=== PATIENT | female | born 1980 | race Caucasian/White ===

== ENCOUNTER → 2017-06-30 09:16 | Outpatient (CLI) | payer BC, SELFPAY ==
[2017-06-30 12:36] LABS: T3 Total - Triiodothyronine 0.82 ng/mL (0.6-1.81)
[2017-06-30 12:53] LABS: T4 Free Direct 0.91 ng/dL (0.76-1.46); Thyroid Stim Hormone (TSH) 0.07 uIU/mL (0.358-3.74)
== END ==
PROVIDERS: Family Provider Family Medicine; PCP Family Medicine; Visit Provider Family Medicine
DX: E03.9 Hypothyroidism, unspecified (principal)
CPT/HCPCS: 36415; 84439; 84443; 84480

== ENCOUNTER → 2018-06-22 10:18 | Outpatient (CLI) | payer BC, SELFPAY ==
[2018-06-22 13:44] LABS: Free T3 2.2 pg/mL (2.18-3.98); T4 Free Direct 1.11 ng/dL (0.76-1.46); Thyroid Stim Hormone (TSH) 1.31 uIU/mL (0.358-3.74)
== END ==
PROVIDERS: Family Provider Family Medicine; PCP Family Medicine; Visit Provider Family Medicine
DX: E03.9 Hypothyroidism, unspecified (principal); Z85.850 Personal history of malignant neoplasm of thyroid
CPT/HCPCS: 36415; 84439; 84443; 84481

== ENCOUNTER → 2018-09-15 11:07 | Outpatient (CLI) | payer BC, SELFPAY ==
[2018-09-15 12:43] LABS: Free T3 2.7 pg/mL (2.18-3.98); T4 Free Direct 0.92 ng/dL (0.76-1.46); Thyroid Stim Hormone (TSH) 0.11 uIU/mL (0.358-3.74)
== END ==
PROVIDERS: Family Provider Family Medicine; PCP Family Medicine; Visit Provider Family Medicine
DX: E03.9 Hypothyroidism, unspecified (principal); Z85.850 Personal history of malignant neoplasm of thyroid
CPT/HCPCS: 36415; 84439; 84443; 84481

== ENCOUNTER → 2019-03-15 14:25 | Outpatient (CLI) | payer BC, SELFPAY ==
[2019-03-15 16:26] LABS: T4 Free Direct 1.23 ng/dL (0.76-1.46); Thyroid Stim Hormone (TSH) 0.77 uIU/mL (0.358-3.74)
== END ==
PROVIDERS: Family Provider Family Medicine; PCP Family Medicine; Visit Provider Family Medicine
DX: E03.9 Hypothyroidism, unspecified (principal)
CPT/HCPCS: 36415; 84439; 84443; 84481

== ENCOUNTER → 2020-05-03 14:33 | Outpatient (CLI) | payer BC, SELFPAY ==
[2020-05-03 18:11] LABS: Free T3 2.7 pg/mL (2.18-3.98); T4 Free Direct 1.05 ng/dL (0.76-1.46); Thyroid Stim Hormone (TSH) 0.11 uIU/mL (0.358-3.74)
== END ==
PROVIDERS: PCP Family Medicine; Visit Provider Family Medicine
DX: E03.9 Hypothyroidism, unspecified (principal)
CPT/HCPCS: 36415; 84439; 84443; 84481

== ENCOUNTER 2020-07-04 09:35 | Day surgery (SDC) | payer BC, SELFPAY ==
--- NOTE | 2020-06-28 10:28 | EKG12_ITS ---
Test Reason : PREOP Blood Pressure : / mmHG Vent. Rate : 060 BPM Atrial Rate : 060 BPM P-R Int : 134 ms QRS Dur : 082 ms QT Int : 392 ms P-R-T Axes : 075 086 063 degrees QTc Int : 392 ms Normal sinus rhythm Normal ECG Confirmed by LOUIE BLACKMON, PAULINA ([id number]), editorial assistant JAMIE LOPEZ ([id number] on 07/03/2020 8:00:31 AM Referred By: Jackie Ray Confirmed By:PAULINA PALMA MD
--- NOTE | 2020-06-28 10:45 | RAD_ITS ---
INDICATION: preop history of radiation tx EXAMINATION/TECHNIQUE: X-RAY - XR Chest 2 Views COMPARISON: None. FINDINGS: The lungs are clear. The cardiomediastinal silhouette is unremarkable. No pleural effusion or pneumothorax. No acute osseous abnormalities. RAD/Chest PA and Lateral IMPRESSION: No acute radiographic abnormalities. Electronically Signed: Royer Patino MD at 18:42 EDT Tel , Service support ,
[2020-06-28 12:36] LABS: Hematocrit 44.3 % (37-47); Hemoglobin 14.3 g/dL (12.0-15.0); Mean Corp Hgb Conc 32.3 g/dL (32-36); Mean Corpuscular Hgb 30.5 pg (27.0-32.0); Mean Corpuscular Volume 94.5 fL (81-99); Mean Platelet Vol. 9.1 fl (6.2-12.0); Platelet Count 263 K/mm3 (150-450); RBC Distribution Width CV 11.9 % (11.6-14.6); RBC Distribution Width SD 41.2 fl (35.1-43.9); Red Blood Count 4.69 M/mm3 (4.2-5.4); White Blood Count 5.3 K/mm3 (4.4-11.0)
[2020-06-28 12:57] LABS: International Normalized Ratio 1.1; Prothrombin Time (Protime)PT. 13.4 SECONDS (11.7-14.9)
[2020-06-28 12:58] LABS: Partial Thromboplast Time 31.7 Seconds (24.1-36.2)
[2020-06-28 13:04] LABS: AST(SGOT) 16 U/L (15-37); Alanine Aminotransfer ALT/SGPT 23 U/L (13-56); Albumin, Serum 3.9 g/dL (3.2-5.0); Alkaline Phosphatase 85 U/L (45-117); Bilirubin, Direct 0.14 mg/dL (0.00-0.30); Globulin 3.4 g/dL (2.2-4.2); Protein, Total 7.3 g/dL (6.4-8.2); Thyroid Stim Hormone (TSH) 1.06 uIU/mL (0.358-3.74)
--- NOTE | 2020-07-02 11:02 | HP.PCM_ITS ---
History and Physical Date of Admission: 07/04/20 HPI: The patient is a 40 year old female presenting for pre-operative visit. She is scheduled for?laparoscopic bilateral salpingectomy and hysteroscopy with bilateral salpingectomy and mirena insertion, for?menorrhagia, dysmenorrhea, adenomyosis on?07/04/20. ??Procedure discussed along with risks, benefits and complications. ?Other alternatives discussed for management. Consent form signed??Yes.? PAST MEDICAL HISTORY PAST MEDICAL HISTORY Diagnosis Date ? Allergic rhinitis, cause unspecified ? ? Malignant neoplasm of thyroid gland (HCC) ? ? ? PAST SURGICAL HISTORY PAST SURGICAL HISTORY Procedure Laterality Date ? THYROIDECTOMY ? 04/08/2005 ? TOTAL THYROID ? TMJ ? 2002 ? UNSPECIFIED ORAL SURGERY PROCEDURE, BY REPORT ? ? ? WISDOM TEETH EXTRACTION ? ? CURRENT MEDICATIONS Current Outpatient Medications Medication Sig Dispense Refill ? azithromycin (ZITHROMAX) 250 mg tablet Take two pills the first day and then one pill daily x 4 days (Patient not taking: Reported on 06/14/2020 ) 6 tablet 0 ? levothyroxine (SYNTHROID) 125 mcg tablet Take 1 tablet by mouth as directed. 1 tablet M-F Sat and Sun take 1.5 tablets. 32 tablet 11 ? COMPOUNDED PRESCRIPTION Lenova - OCP ? ? ? epinephrine(EPIPEN 0.3 MG/0.3 ML (1:1,000) IM INJECTOR) use as directed for allergic reaction. ?Seek emergent medical care immediately after use. two-pack with show dog trainer 1 ? No current facility-administered medications for this visit. ? ALLERGIES:?Influenza Virus Vaccine Tri-Split 9829-0826, Iodine, Sulfa (Sulfonamide Antibiotics), Avocado, Bee Sting, Eggs [Egg], Environmental [Other], Nut - Unspecified, and Shellfish ? PERSONAL HISTORY:? SOCIAL HISTORY Social History ? Tobacco Use ? Smoking status: Former Smoker ? ? Years: 1.00 ? ? Quit date: 03/29/1998 ? ? Years since quittin.2 ? Smokeless tobacco: Never Used Vaping Use ? Vaping Use: Never used Substance Use Topics ? Alcohol use: Yes ? ? Alcohol/week: 1.7 standard drinks ? ? Comment: Occasionally,NOT WHILE ? Drug use: No ? FAMILY HISTORY:? FAMILY HISTORY FAMILY HISTORY Problem Relation Age of Onset ? Breast Cancer Mother ? ? other (osteopenia) Mother ? ? Prostate Cancer Father ? ? Diabetes Father ? ? Diabetes Maternal Grandmother ? ? Stroke Maternal Grandmother ? ? Cancer Maternal Grandmother ?Metastatic with unknown primary site. ? Colon Cancer Paternal Grandmother ? ? Heart Paternal Grandmother ? ? Prostate Cancer Paternal Grandfather ? ? Heart Paternal Grandfather ? ? other (PARKINSONS DISEASE) Paternal Grandfather ? ? other (thyroid cancer) Sister ? ? Cancer Maternal Uncle ?LUNG CANCER ? REVIEW OF SYMPTOMS: GENERAL: denies fevers or chills ENDOCRINOLOGY: has not been on steroids Cardiology : denies palpitations or chest pain Respiratory: denies SOB or cough Hematology: denies history of prolonged bleeding or easy bruising or VTE Allergy: Denies history of personal or family history of allergy to anesthesia ? ? PHYSICAL EXAMINATION: ? VITALS:?Last menstrual period 06/02/2020. ? GENERAL:??The patient is well nourished, well hydrated in no acute distress. ?, The patient is oriented to time, place, and person. NECK:?Supple. No lynphadenopathy, normal thyroid, no thyromegaly. LUNGS:?Clear to auscultation bilaterally. no wheezes, rhonchi or rales HEART:?Regular rate and rhythm, Normal heart sounds and No murmurs or gallops ? ? IMPRESSION:?menorrhagia, dysmenorrhea, adenomyosis ? PLAN:???The risks/benefits/alternatives and personal involved for the planned?laparoscopic bilateral salpingectomy, hysteroscopy with endometrial ablation and Mirena insertion?were reviewed with the patient. Her questions were answered to her satisfaction and she desires to proceed. ?Consent was signed. ?I reviewed with her postop instructions and expectations. ? ? I have reviewed and updated past medical and surgical history, medications and allergies. This H&P was completed in my office on 07/02/2020 Procedure Criteria Procedure Type: Elective COVID Risk Discussion: The surgeon/proceduralist and patient have discussed in detail the risk of exposure to and/or potential harm posed by the COVID-19 virus with having a surgery/procedure at this time versus the risk of delaying the surgery/procedure. It is not possible to know either the risk of delaying the surgery or procedure or chance of getting an infection with perfect accuracy, but a joint decision was made between the patient and the surgeon/proceduralist to proceed at this time with the scheduled surgery/procedure as indicated on the consent form.
[2020-07-04] VITALS (8 sets, daily range): BP systolic 98–133; BP diastolic 57–78; PULSE 53–69; RESP 16–18; TEMP 36.1–37.3; O2SAT 96–100; BMI 23.8
--- NOTE | 2020-07-04 | FALS_PTH ---
PATIENT: ISIDRA REGAN [place] [facility] [id number] AGE/SX: 40/F ROOM: RE07/04/[address]: Dr. Jackie Ray MD : 1980 BED: DIS: 07/04/2020 SPEC #: [id number] RECD: 07/04/20 13:11 STATUS: WANG REQ #: [id number] LEVI: 07/04/20 00:[address]: Jackie Ray DEPT: SURGICAL PATHOLOGY RECD BY: Agus Conteh ENTERED: 07/04/20 13:12 SP TYPE: FALL TUBES OTHR DR: Dr. July Machado, DO Tissues: Fallopian tube Procedures: Surgery Specimen Level II HEADER OPERATION: Laparoscopic salpingectomy PRE-OP DIAGNOSIS: Menorrhagia, dysmenorrhea, adenomyosis TISSUE SUBMITTED: Bilateral fallopian tubes MICROSCOPIC DIAGNOSIS Bilateral fallopian tubes, salpingectomy: Bilateral fallopian tubes - no pathologic diagnosis. A paratubal cyst (1.5 cm in greatest dimension). TOM:aishwarya 07/05/2020 MICROSCOPIC DESCRIPTION Slides are reviewed. GROSS DESCRIPTION Received in fixative is one container labeled with the patient's name and designated bilateral fallopian tubes. The specimen consists of bilateral fallopian tubes including fimbrial ends. One of the fallopian tubes measure 8 cm in length and 0.8 cm in diameter. The second fallopian tube is received in multiple pieces. The distal fimbrial end measures 3 x 1.5 x 0.5 cm and the proximal portion of the fallopian tube in multiple measures 6 cm in length and 0.3 cm in diameter. The fallopian tubes are not identified as right or left. A possible collapsed cyst is also noted adjacent to the fimbrial end of the fallopian tube measuring 1.5 cm in greatest dimension. Sections of both fallopian tubes reveal unremarkable cut surfaces. Headwaiter/Headwaitress sections are submitted in two cassettes as follows: 1 - intact fallopian tube, 2 - second fallopian tube received in multiple pieces and paratubal cyst. / TOM:aishwarya 07/04/20 TC:5 CPT: 70599 x2
[2020-07-04 10:04] LABS: Internal QC Validated? YES +Cl - CLEAR BKGD; Pregnancy, Urine Negative Negative
[2020-07-04] MEDS: Lactated Ringers 1,000 ML 100 ML IV ×2 (10:24→14:01)
[2020-07-04] MEDS: Celecoxib 200 MG Capsule 400 MG PO (10:25)
[2020-07-04] MEDS: Acetaminophen 500 MG Tablet 1000 MG PO (10:25)
--- NOTE | 2020-07-04 10:53 | PCM.DC.TUB ---
Discharge Diet: No Restrictions - Increase fluid intake for the next 48 hours. Discharge Activity: Return to Normal Activity, May Drive - when you are no longer taking pain/narcotic meds., May Shower, May Take a Tub Bath - in 7 days Additional Activity Instructions:: Ambulate often the next week after surgery. Nothing in the vagina for 5 days. Call your doctor if your incision/area has: Continuous Slow Oozing, Sudden Increased Bleeding, Increased Pain/ Swelling, Increased Redness, Foul Smelling Discharge Call your doctor if you observe: Fever of 101 or Higher Cleanse incision/area with: Soap & Water, - - your incisions have skin glue, it can get wet. Leave it on for 10 days or until it peels off by itself. Additional Instructions: Nothing in your vagina for 2 weeks. Allergies/Adverse Reactions: Allergies avocado Allergy (Verified 07/04/20 10:15) Swelling shellfish derived Allergy (Verified 07/04/20 10:15) Anaphylaxis Medications to take at Discharge Cholecalciferol (Vitamin D3) [Vitamin D3] 5,000 unit PO DAILY 06/27/20 Cyanocobalamin (Vitamin B-12) [Vitamin B12] 2,500 mcg PO DAILY 06/27/20 Ibuprofen [Motrin] 400 - 600 mg PO PRN PRN 06/27/20 Levothyroxine [Synthroid] 1.5 tablet PO BUCKLEY 06/27/20 Levothyroxine [Synthroid] 125 mcg PO DAILY 06/27/20 Magnesium Oxide [Magnesium] 500 mg PO DAILY 06/27/20 Melatonin/Pyridoxine HCl (B6) [Melatonin Tr 10 mg Tablet] 1 each PO QHS 06/27/20 Oxycodone [Oxyir] 5 mg PO Q8H PRN PRN 3 Days #8 tablet 07/04/20 The following prescriptions were given: Oxycodone [Oxyir] 5 mg PO Q8H PRN PRN 3 Days #8 tablet PRN Reason: severe pain Transmission Status: Received by [facility] Primary Care Physician: July Machado DO [Primary Care Provider] - Test Results: Test results from this visit will be discussed in further detail at your follow-up appointment, if applicable. Please Follow Up With: Jackie Ray MD - [phone]
[2020-07-04] MEDS: Bupivacaine Mpf 0.5% 30 ML VIAL (11:01)
[2020-07-04] MEDS: Vasopressin 20 UNITS/ML Vial (11:20)
[2020-07-04] MEDS: Levonorgestrel IUD (Liletta) 1 EACH INTRA-UTER (11:35)
--- NOTE | 2020-07-04 11:46 | PCM.OPRPT ---
Report of Operation Date of Procedure: 07/04/20 Pre-Operative Diagnosis: menorrhagia, sterilization request Post-Operative Diagnosis: same Surgery/Procedure Performed:: laparoscopic bilateral salpintectomy, hysteroscopy with Priti ablation and Liletta IUD insertion Description of Surgical Findings:: normal cervix, normal endometrium, normal uterus, tubes and ovaries. 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 A weighted speculum was placed in the vagina and the anterior lip of the cervix was grasped with a tenaculum. Tempted to dilate the cervix and placed a uterine manipulator, but the cervical os was very stenotic. I then asked for dilation of vasopressin. I injected 5 units of vasopressin in the cervix and left the tenaculum on the cervix for uterine manipulation. Attention was turned to the abdomen. All port sites were infiltrated with 0.5% Marcaine before skin incisions were made. A 5 mm intraumbilical incision was made. The anterior abdominal wall was tented up with 2 towel clamps while a 5 mm blade less trocar and sleeve were directly inserted. Intraperitoneal placement was confirmed with the laparoscope. The pneumoperitoneum was created and the underlying abdominal contents were intact. The patient was placed in Trendelenburg. Right and left lower quadrant ports were placed under direct visualization lateral to the inferior epigastric vessels. The bowel was swept away and the above findings were noted. The LigaSure device was used to clamp seal and transect the antimesenteric portions of the right tube to the cornual insertion of the uterus. The tube was amputated from the uterus and the pedicles were all confirmed to be hemostatic. The same procedure was performed on the contralateral side. The specimens were brought out through a 5 mm port. The pedicles were again examined and found to be hemostatic. The lateral ports were removed under direct visualization and no active bleeding was noted. The pneumoperitoneum was released. The skin incisions were closed with Monocryl suture in a subcuticular fashion and skin glue. Some time had elapsed since injection of the vasopressin into the stenotic cervix. I was then easily able to dilate the cervix. The cervix was dilated serially with Hegar dilators. The 5mm hysteroscope was placed into the uterine cavity and the above findings were noted. Bilateral tubal ostia were identified. The uterus sounded to 7cm and the cervical length was 3cm. The endometrial cavity length was 4cm. The hysteroscope was removed. The Priti device was set to 4cm. The instrument was then seated into the endometrial cavity and the indicator was in the green. The cervical seal balloon was inflated and the uterine integrity test was passed. The ablation procedure was initiated and completed without interruption. During the ablation procedure gentle traction was held on the tenaculum and the Priti device was held up against the uterine fundus. When the ablation procedure was completed the Priti was removed. The tenaculum was removed and the tenaculum site was noted to be hemostatic. All sponge and needle counts were correct. A vaginal sweep was performed by me. The patient was awakened and taken to the recovery room in stable condition. Hysteroscopic ins: 100cc normal saline Hysteroscopic outs:50cc Findings: Endometrial cavity: Normal, no fibroids or polyps noted Cervix: Normal Vagina: Normal Start time 1101am Stop [id number] am Grafts/Implants Used: Liletta IUD - Complications none - Admit VTE Documentation VTE Present on Admission: No VTE Mechan Device Prophylaxis: SCD's VTE Pharm Prophylaxis ordered?: No Reason prophylaxis not ordered:: Procedure Not Indicated
[2020-07-04] MEDS: oxyCODONE 5 MG Tablet PO ×2 (13:58→15:04)
== END 2020-07-04 16:38 | disposition home or self-care (01) ==
LOC: SDC 09:37 → AC 09:38
PROVIDERS: Anesthesiology; PCP Family Medicine; Referring Provider Obstetrics & Gynecology; Visit Provider Obstetrics & Gynecology
PROC: 0U5B8ZZ Destruction of Endometrium, Via Natural or Artificial Opening Endoscopic (ICD-10-PCS; CPT 58558; principal; 2020-07-04 10:50)
PROC: (CPT 58661; 2020-07-04 10:50)
DX: N92.0 Excessive and frequent menstruation with regular cycle (principal); N94.6 Dysmenorrhea, unspecified; N80.0 Endometriosis of uterus; N83.8 Other noninflammatory disorders of ovary, fallopian tube and broad ligament; N88.2 Stricture and stenosis of cervix uteri; Z30.2 Encounter for sterilization; Z30.430 Encounter for insertion of intrauterine contraceptive device; Z20.822 Contact with and (suspected) exposure to COVID-19; Z79.899 Other long term (current) drug therapy; Z87.891 Personal history of nicotine dependence
CPT/HCPCS: 00840; 58300; 58563; 58661; 36415; 71046; 80076; 81025; 84443; 85027; 85610; 85730; 87426; 88302; 93005; C9803; J7120; J2405

== ENCOUNTER 2021-04-18 17:26 | Outpatient (CLI) | payer BC, SELFPAY | END 2021-04-18 23:59 | disposition short-term general hospital (02) | PROVIDERS: PCP Family Medicine; Visit Provider Family Medicine | DX: Z20.822 Contact with and (suspected) exposure to COVID-19 (principal) | CPT/HCPCS: 87635; U0003; U0005 ==

== ENCOUNTER 2021-10-22 13:42 | Outpatient (CLI) | payer BC, SELFPAY ==
[2021-10-22 15:29] LABS: Absolute Neutrophil Count 5.3 X10^3/uL (2.0-7.7); Basophil# 0.05 X10^3/uL; Basophil% 0.6 % (0-1); Eosinophil# 0.04 X10^3/uL; Eosinophils% 0.5 % (0-5); Hematocrit 40.6 % (37-47); Hemoglobin 13.8 g/dL (12.0-15.0); Lymphocyte % 22.6 % (19-41); Mean Corpuscular Hgb 32.9 pg (27.0-32.0); Mean Corpuscular Volume 96.7 fL (81-99); Mean Platelet Vol. 9.3 fl (6.2-12.0); Monocyte# 0.78 X10^3/uL; Monocyte% 9.8 % (0-10); NRBC Flagged by Analyzer 0 % (0-5); Neutrophil # 5.27 X10^3/uL (2.7-7.7); Neutrophil % 66.2 % (47-70); Platelet Count 252 K/mm3 (150-450); RBC Distribution Width CV 12.7 % (11.6-14.6); RBC Distribution Width SD 44.7 fl (35.1-43.9)
[2021-10-22 16:10] LABS: ALB/GLOB Ratio 1.2 RATIO (0.9-2.4); AST(SGOT) 19 U/L (15-37); Alanine Aminotransfer ALT/SGPT 25 U/L (13-56); Albumin, Serum 3.9 g/dL (3.2-5.0); Alkaline Phosphatase 65 U/L (45-117); Anion Gap 5 (5-15); BUN 12 mg/dL (7-18); BUN/Creat Ratio 17.1 RATIO (10-20); Calcium,Total 8.5 mg/dL (8.5-10.1); Chloride 105 mmol/L (98-107); Cholesterol 152 mg/dL (200); EST Glomerular Filtration Rate 96 mL/min (>60); Est Glom Filt Rate - Afr Amer 117 mL/min (>60); Free T3 2.3 pg/mL (2.18-3.98); Globulin 3.3 g/dL (2.2-4.2); Glucose 70 mg/dL (74-106); High Density Lipoprotein 71 mg/dL; Potassium 3.6 mmol/L (3.5-5.1); Protein, Total 7.2 g/dL (6.4-8.2); Sodium Level 140 mmol/L (136-145); T4 Free Direct 1.03 ng/dL (0.76-1.46); Thyroid Stim Hormone (TSH) 0.34 uIU/mL (0.358-3.74); Triglycerides 90 mg/dL; Very Low Density Lipoprotein 18 mg/dL (5-40)
== END 2021-10-22 23:59 | disposition home or self-care (01) ==
LOC: LAB 13:44
PROVIDERS: PCP Family Medicine; Referring Provider Family Medicine; Visit Provider Family Medicine
DX: Z00.00 Encounter for general adult medical examination without abnormal findings (principal); Z13.220 Encounter for screening for lipoid disorders; E03.9 Hypothyroidism, unspecified; E16.2 Hypoglycemia, unspecified; R53.83 Other fatigue; Z85.850 Personal history of malignant neoplasm of thyroid
CPT/HCPCS: 36415; 80053; 80061; 84439; 84443; 84481; 85025

== ENCOUNTER → 2022-01-02 | Outpatient (CLI) | payer BC, SELFPAY ==
[2022-01-02 17:46] LABS: Absolute Lymphocyte Count 1.45 X10^3/uL (0.83-4.51); Absolute Neutrophil Count 3.4 X10^3/uL (2.0-7.7); Basophil# 0.02 X10^3/uL; Basophil% 0.4 % (0-1); Eosinophil# 0.06 X10^3/uL; Eosinophils% 1.1 % (0-5); Hematocrit 41.7 % (37-47); Lymphocyte # 1.45 X10^3/ul (0.83-4.51); Lymphocyte % 26.1 % (19-41); Mean Corp Hgb Conc 33.6 g/dL (32-36); Mean Corpuscular Hgb 32.3 pg (27.0-32.0); Mean Corpuscular Volume 96.3 fL (81-99); Mean Platelet Vol. 9.2 fl (6.2-12.0); Monocyte# 0.59 X10^3/uL; Monocyte% 10.6 % (0-10); NRBC Flagged by Analyzer 0 % (0-5); Neutrophil # 3.42 X10^3/uL (2.7-7.7); Neutrophil % 61.4 % (47-70); Platelet Count 255 K/mm3 (150-450); RBC Distribution Width CV 11.9 % (11.6-14.6); RBC Distribution Width SD 41.7 fl (35.1-43.9); Red Blood Count 4.33 M/mm3 (4.2-5.4); White Blood Count 5.6 K/mm3 (4.4-11.0)
[2022-01-02 18:15] LABS: Anion Gap 7 (5-15); BUN 10 mg/dL (7-18); BUN/Creat Ratio 14.8 RATIO (10-20); Chloride 104 mmol/L (98-107); Creatinine, Serum 0.67 mg/dL (0.55-1.02); EST Glomerular Filtration Rate 101 mL/min (>60); Est Glom Filt Rate - Afr Amer 122 mL/min (>60); Glucose 70 mg/dL (74-106); Potassium 3.4 mmol/L (3.5-5.1); Sodium Level 141 mmol/L (136-145)
== END | disposition home or self-care (01) ==
LOC: MTLAB 14:31
PROVIDERS: PCP Family Medicine; Referring Provider Physician Assistant Surgical; Visit Provider Physician Assistant Surgical
DX: Z01.812 Encounter for preprocedural laboratory examination (principal); I10 Essential (primary) hypertension
CPT/HCPCS: 36415; 80048; 85025

== ENCOUNTER → 2022-07-24 | Outpatient (CLI) | payer BC, SELFPAY ==
[2022-07-24 18:24] LABS: T4 Free Direct 1.05 ng/dL (0.76-1.46); Thyroid Stim Hormone (TSH) 0.06 uIU/mL (0.358-3.74)
[2022-07-28 09:08] LABS: Anti-Thyroglobulin AB < 1.0 IU/mL (0.0-0.9); Thyroglobulin, Serum Qt. < 0.1 ng/mL (1.5-38.5)
== END | disposition home or self-care (01) ==
LOC: BFHLAB 14:21
PROVIDERS: PCP Family Medicine; Referring Provider Family Medicine; Visit Provider Family Medicine
DX: E03.2 Hypothyroidism due to medicaments and other exogenous substances (principal); Z85.850 Personal history of malignant neoplasm of thyroid
CPT/HCPCS: 36415; 84432; 84439; 84443; 86800

== ENCOUNTER → 2022-10-22 | Outpatient (CLI) | payer BC, SELFPAY ==
[2022-10-22 12:26] LABS: Free T3 1.7 pg/mL (2.18-3.98); T4 Free Direct 0.78 ng/dL (0.76-1.46); Thyroid Stim Hormone (TSH) 7.09 uIU/mL (0.358-3.74)
== END | disposition home or self-care (01) ==
LOC: BFHLAB 10:31
PROVIDERS: PCP Family Medicine; Referring Provider Family Medicine; Visit Provider Family Medicine
DX: E03.9 Hypothyroidism, unspecified (principal)
CPT/HCPCS: 36415; 84439; 84443; 84481

== ENCOUNTER → 2022-10-23 | Outpatient (CLI) | payer BC, SELFPAY ==
[2022-10-26 17:07] LABS: Anti-Thyroglobulin AB < 1.0 IU/mL (0.0-0.9); Thyroglobulin, Serum Qt. 0.1 ng/mL (1.5-38.5)
== END | disposition home or self-care (01) ==
LOC: BFHLAB 15:07
PROVIDERS: PCP Family Medicine; Referring Provider Family Medicine; Visit Provider Family Medicine
DX: E03.9 Hypothyroidism, unspecified (principal); Z85.850 Personal history of malignant neoplasm of thyroid
CPT/HCPCS: 36415; 84432; 86800

== ENCOUNTER → 2023-10-25 | Outpatient (CLI) | payer BC, SELFPAY ==
[2023-10-25 18:22] LABS: ALB/GLOB Ratio 1.1 RATIO (0.9-2.4); AST(SGOT) 29 U/L (15-37); Alanine Aminotransfer ALT/SGPT 24 U/L (13-56); Albumin, Serum 3.9 g/dL (3.2-5.0); Alkaline Phosphatase 62 U/L (45-117); Anion Gap 5 (5-15); BUN 15 mg/dL (7-18); BUN/Creat Ratio 16.8 RATIO (10-20); Calcium,Total 8.5 mg/dL (8.5-10.1); Chloride 104 mmol/L (98-107); Creatinine, Serum 0.89 mg/dL (0.55-1.02); EST Glomerular Filtration Rate 73 mL/min (>60); Est Glom Filt Rate - Afr Amer 88 mL/min (>60); Free T3 1.8 pg/mL (2.18-3.98); Globulin 3.4 g/dL (2.2-4.2); Glucose 96 mg/dL (74-106); Potassium 3.9 mmol/L (3.5-5.1); Protein, Total 7.3 g/dL (6.4-8.2); Sodium Level 138 mmol/L (136-145); T4 Free Direct 0.71 ng/dL (0.76-1.46); Thyroid Stim Hormone (TSH) 8.13 uIU/mL (0.358-3.74)
[2023-10-27 16:09] LABS: Anti-Thyroglobulin AB < 1.0 IU/mL (0.0-0.9); Thyroglobulin, Serum Qt. < 0.1 ng/mL (1.5-38.5)
== END | disposition home or self-care (01) ==
LOC: BFHLAB 15:02
PROVIDERS: PCP Family Medicine; Referring Provider Family Medicine; Visit Provider Family Medicine
DX: E03.9 Hypothyroidism, unspecified (principal); Z51.81 Encounter for therapeutic drug level monitoring
CPT/HCPCS: 36415; 80053; 84432; 84439; 84443; 84481; 86800

== ENCOUNTER 2024-04-17 08:02 | Day surgery (SDC) | payer BC, SELFPAY ==
[2024-04-17] VITALS (7 sets, daily range): BP systolic 80–97; BP diastolic 57–65; PULSE 64–68; RESP 16; TEMP 37.1–37.6; O2SAT 96–100; BMI 23.1
--- NOTE | 2024-04-17 08:25 | HP.PCM_ITS ---
[facility] - General General Date of Service: 04/17/24 HPI Narrative ISIDRA REGAN, is a 44 F who presents for screening colonoscopy. Patient never had previous colonoscopy. Patient's paternal grandmother did have colon cancer and patient's dad and sister did have polyps. Patient has bowel movements daily denies any blood. Patient denies any chronic abdominal pain/nausea/vomiting/reflux. [facility] Medical History Hypothyroid Family hx of colon cancer Home Medications ?Medication ?Instructions ?Recorded ?Last Taken ?Type epinephrine 0.3 mg/0.3 mL 0.3 mg IM Q5-15M PRN anaphylaxis 02/11/24 Unknown History injection, auto-injector (EpiPen) multivitamin 1 tab PO QDAY 02/11/24 04/10/24 History levothyroxine 137 mcg tablet 137 mcg PO DAILY 04/13/24 Unknown History (Euthyrox) naproxen sodium 220 mg capsule 220 mg PO BID PRN pain 04/13/24 Unknown History (Aleve) Allergy/AdvReac Type Severity Reaction Status Date / Time avocado Allergy Swelling Verified 04/13/24 10:06 shellfish derived Allergy Anaphylaxis Verified 04/13/24 10:06 adhesive (adhesives) AdvReac Sensitivity Verified 04/13/24 10:06 Family History (Updated 02/11/24 @ 10:20 by Francesca Dawkins) Grandmother Colon cancer Paternal Father Colon polyps Sister Colon polyps Surgical History (Updated 04/13/24 @ 10:16 by Breezy Bardales) History of surgical removal of ganglion cyst Tubal ligation status H/O thyroidectomy Social History (Updated 02/11/24 @ 10:21 by Francesca Dawkins) household members: spouse current occupational status: employed Smoking Status: Never smoker substance use type: does not use Past Medical/Surgical History Planned Operation Planned Operative Procedure(s): COLONOSCOPY S.O.S: No Previous Hospitalizations/Surgeries HX Hospitalizations: No HX of Surgeries: total thyroidectomy 2006 iud removed surgically tmj surgery Any Problems With Anesthesia: No You/Your Family Experience Fever (Hyperthermia) With Anes: No Cholinesterase deficiency: No Cardiovascular Hx Chest Pain within Last 2 months: No Hx of Irregular Heartbeat and/or Afib: No Hx Heart Attack: No Hx Congestive Heart Failure: No Hx Rheumatic Fever: No Hx Hypertension: No Hx Internal Defibrillator: No Hx Pacemaker: No Hx Cardiac Catheterization: No Hx Cardiac Surgery/Stents/Etc.: No Hx Stress Test: No Hx Pain in Legs when Walking/Leg Cramps: No Respiratory Chronic Cough: No HX of Shortness of Breath: No Hoarseness: No Hx Chronic Obstructive Pulmonary Disease (COPD): No Hx Asthma: No Hx Emphysema: No Hx Sleep Apnea: No Hx Respiratory Tract Infection/Cold (presently): No Do You Snore Loudly (louder than talking or can be heard): No Do You Often Feel Tired/ Fatigued/ Sleepy Dring Daytime?: No Has Anyone Observed You Stop Breathing During Sleep?: No Result (for STOP score): Negative Hx Smoking: No Smoking Status: Never smoker Gastrointestinal Hx Gastrointestinal Disorders: No Hx Gastrointestinal Bleed: No Hx Ulcer: No Hx Hiatal Hernia: No Difficulty Chewing/Swallowing: Yes (troubles with swallowing dry foods at times) Special diet followed at home: No Hx Unplanned Weight Loss of 20#: No HX Unplanned Weight Gain of 20#: No Neurological Hx Seizures: No HX Syncope/Blackout Spells/Unconsciousness: No Hx Transient Ischemic Attacks (TIA): No Hx Multiple Sclerosis: No Hx Parkinson's Disease: No Hx Head/Neck Injury: No Hx Headaches: No Hx Back Injury/Pain: No Recent Onset of Speech Difficulty: No Restless Legs: Yes Does patient have nerve stimulator: No Blood Disorder Hx Leukemia: No Bleeding Tendencies: Yes (bruises easily) Hx Deep Vein Thrombosis: No Hx High Cholesterol: No Blood Transmitted Disease: No Hx Hepatitis: No Hx Cirrhosis: No Hx Anemia: No Hx Blood Disorders: No Reproduction Is Patient Lactating: No Hx Hysterectomy: No Hx Tubal Ligation: No Are You Post Menopause: No Genitourinary Hx Renal Disease: No Musculoskeletal Hx Arthritis: No Hx Rheumatoid Arthritis: No Hx Gout: No Recent Onset of an Orthopedic Problem: No Endocrine Hx Diabetes: No Thyroid Disease: Yes (on med) Hx Steroid Therapy: No Psycho/Social Hx Substance Use: No Hx Alcohol Use: Yes (occ) Hx Anxiety: No Hx Depression: No Mental Illness: No Hx Dementia: No Miscellaneous Hx Cancer: Yes (thyroid/total thyroidectomy/radiation) Recent Exposure to Contagious Disease: No Hx of C-Diff: No Any Loose Teeth: No Allergies avocado Allergy (Verified 04/13/24 10:06) Swelling shellfish derived Allergy (Verified 04/13/24 10:06) Anaphylaxis adhesive (adhesives) Adverse Reaction (Verified 04/13/24 10:06) Sensitivity Discharge After D/C, Where Do you Plan to Go: Return Home Physical Exam Const alert, oriented x3 and no apparent distress HEENT normocephalic and head/scalp atraumatic Resp normal respiratory effort Cardio regular rate GI soft to palpation and non-tender; Negative for non-distended Palpation: Negative for guarding Extremity no clubbing, cyanosis or edema Skin no rashes or lesions noted Neuro CN's II-XII intact bilaterally Psych mental status grossly normal Assessment & Plan Assessment/Plan (1) Encounter for screening for malignant neoplasm of colon: Surgery Risks - Colonoscopy I discussed with the patient the risks of the procedure: Yes Risks Include but are not Limited To: Risks include but are not limited to: Bleeding, perforation requiring further surgery, inability to complete colonoscopy requiring barium enema.
--- NOTE | 2024-04-17 08:52 | PCM.PRE.AN2 ---
ASA Classification* ASA Classification ASA Classification: 2 Assessment & Plan Anesthesia* Anesthesia Assessment Anesthesia Assessment: Discussed sedation and/or anesthesia options, risks, benefits, and alternatives with patient/parents/legal guardian/POA. Questions invited. The patient/parents/legal guardian/POA seems to understand and agrees to proceed with anesthesia plan. Reviewed the physical assessment, medical history, allergy history and patient home medications list prior to surgery/procedure/anesthetic and documented any changes. Performed airway and anesthesia risk assessments. Anesthesia Type Anesthesia Type: MAC History Source History Obtained from:: Patient, Chart and Significant Other (spouse) Anesthesia Focused Assessment* Temperature: 99.6 F Pulse Rate: 68 Blood Pressure: 97/65 Respiratory Rate: 16 Pulse Ox: 100 Oxygen Delivery Method: Room Air Airway Assessment Mouth opens: >3 cm Mallampati Score: I Teeth Condition: Intact Neck Range of motion (ROM): Full ROM Focused Labs Anesthesia Preop lab: CBC WBC 5.6 K/mm3 (4.4-11.0) 01/02/22 14:34 RBC 4.33 M/mm3 (4.2-5.4) 01/02/22 14:34 Hgb 14.0 g/dL (12.0-15.0) 01/02/22 14:34 Hct 41.7 % (37-47) 01/02/22 14:34 Plt Count 255 K/mm3 (150-450) 01/02/22 14:34 CHEMISTRY Potassium 3.9 mmol/L (3.5-5.1) 10/25/23 15:04 Sodium 138 mmol/L (136-145) 10/25/23 15:04 BUN 15 mg/dL (7-18) 10/25/23 15:04 Creatinine 0.89 mg/dL (0.55-1.02) 10/25/23 15:04 Glucose 96 mg/dL (74-106) 10/25/23 15:04 TSH 8.13 uIU/mL (0.358-3.74) H 10/25/23 15:04 COAG PT 13.4 SECONDS (11.7-14.9) 06/28/20 10:58 Urine Test Negative Negative 07/04/20 09:50 Pre-Assessment Diagnosis/Proposed Procedure Planned Operative Procedure(s): COLONOSCOPY Anesthesia History 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 When Was Last Pacemaker Check QUESTION #4 FULL TEXT: You/Your Family Experience fever (hyperthermia) with Anesthesia Last Oral Intake Last Oral intake: Last Oral Intake NPO since 20:00 04/17/24 08:29 Meds taken in AM with sips of No 04/17/24 08:29 water? 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 Female Yes 04/13/24 10:09 HX of Motion Sickness Yes 04/13/24 10:09 HX of N/V After Surgery No 04/13/24 10:09 Non-Smoker Yes 04/13/24 10:09 Duration of Surgery greater No 04/13/24 10:09 than 60 minutes Number of Risk Factors 3 04/13/24 10:09 PONV Score Moderate Risk 04/13/24 10:09 Any additional information?: No Height & Weight Height & Weight: Anesthesia: Height & Weight Height 5 ft 5.5 in 04/17/24 08:29 Weight: 64 kg 04/17/24 08:29 Body Mass Index (BMI) 23.1 04/17/24 08:29 Respiratory Assessment Respiratory Assessment - shredded filler cutter operator: Respiratory Tract Infection Hx - shredded filler cutter operator Hx Respiratory Tract Infection No 04/17/24 08:26 STOP Sleep Apnea STOP Sleep Apnea - shredded filler cutter operator: STOP Sleep Apnea - shredded filler cutter operator Hx Hypertension No 04/17/24 08:26 Hx Sleep Apnea No 04/17/24 08:26 CPAP BIPAP Do you snore loudly (louder No 04/17/24 08:26 than talking or can be heard Do you often feel tired/ No 04/17/24 08:26 fatigued/ sleepy during daytime? Has anyone observed you stop No 04/17/24 08:26 breathing during sleep? STOP Results Negative 04/17/24 08:26 QUESTION #5 FULL TEXT : Do you snore loudly (louder than talking or can be heard through closed doors)? 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 Specify any problems Hx of Preganancy in last 3 No 04/13/24 10:09 Months Nurse Filling Out Transfusion [email or web address] 04/13/24 10:09 & Questions: Date: 04/13/24 04/13/24 10:09 Time: 10:13 04/13/24 10:09 Patient unable to answer at this time (ie. confused, unrespo /Reproduction History /Reproductive History - shredded filler cutter operator: /Reproductive Hx- shredded filler cutter operator Hx Now Gestational Age (in weeks): EDC: Hx Hx Para Hx Section SAB PFSH Medical History Hypothyroid Family hx of colon cancer Home Medications ?Medication ?Instructions ?Recorded ?Last Taken ?Type epinephrine 0.3 mg/0.3 mL 0.3 mg IM Q5-15M PRN anaphylaxis 02/11/24 Unknown History injection, auto-injector (EpiPen) multivitamin 1 tab PO QDAY 02/11/24 04/10/24 History levothyroxine 137 mcg tablet 137 mcg PO DAILY 04/13/24 Unknown History (Euthyrox) naproxen sodium 220 mg capsule 220 mg PO BID PRN pain 04/13/24 Unknown History (Aleve) Allergy/AdvReac Type Severity Reaction Status Date / Time avocado Allergy Swelling Verified 04/13/24 10:06 shellfish derived Allergy Anaphylaxis Verified 04/13/24 10:06 adhesive (adhesives) AdvReac Sensitivity Verified 04/13/24 10:06 Family History Grandmother Colon cancer Paternal Father Colon polyps Sister Colon polyps Surgical History History of surgical removal of ganglion cyst Tubal ligation status H/O thyroidectomy Social History household members: spouse current occupational status: employed Smoking Status: Never smoker substance use type: does not use Review of Systems (Anesthesia) ROS Narrative System reviewed and no additional complaints, except as documented.
--- NOTE | 2024-04-17 10:16 | OP.CCLET_ITS ---
04/17/2024 July Machado [address] [place] [address] Re : Colonoscopy procedure for Patti Kruegerdoloressherrill Dear Dr. Machado This procedure was performed on Wednesday, April 17, 2024. My impressions and recommendations are as follows: Impressions : - Hemorrhoids found on perianal exam. - Non-bleeding internal hemorrhoids. - The entire examined colon is normal. - No specimens collected. Recommendations : - Discharge patient to home. - Resume previous diet. - Continue present medications. - Await pathology results. - Repeat colonoscopy in 10 years for screening purposes. My findings are described in the full procedure note, which is enclosed. If I can be of further assistance, please feel free to contact me at Doctor phone number(s): , Work: . Sincerely, MD Shelby Hurst MD 04/17/2024 10:15:53 AM This report has been signed electronically.
--- NOTE | 2024-04-17 10:16 | OP.COLON_ITS ---
Patient Name: Patti Mcneal Procedure Date: 04/17/2024 9:40 AM Date of : 1980 Age: 44 Procedure: Colonoscopy Indications: Screening for colorectal malignant neoplasm Providers: Shelby English MD Referring MD: July Machado Medicines: Monitored Anesthesia Care Patient Profile: This is a 44 year old female. Last Colonoscopy: none. The patient's first colonoscopy is today. Complications: No immediate complications. Procedure: Pre-Anesthesia Assessment: - Prior to the procedure, a History and Physical was performed, and patient medications and allergies were reviewed. The patient's tolerance of previous anesthesia was also reviewed. The risks and benefits of the procedure and the sedation options and risks were discussed with the patient. All questions were answered, and informed consent was obtained. Prior Anticoagulants: The patient has taken no anticoagulant or antiplatelet agents. ASA Grade Assessment: Per anesthesia. After reviewing the risks and benefits, the patient was deemed in satisfactory condition to undergo the procedure. After I obtained informed consent, the scope was passed under direct vision. Throughout the procedure, the patient's blood pressure, pulse, and oxygen saturations were monitored continuously. The pediatric colonoscope was introduced through the anus and advanced to the cecum, identified by the appendiceal orifice, ileocecal valve and palpation. The colonoscopy was performed without difficulty. The patient tolerated the procedure well. The quality of the bowel preparation was good. Scope In: 9:53:06 AM Scope Withdrawal Time 0 hours 5 minutes 24 seconds Scope Out: 10:11:51 AM Total Procedure Duration Time 0 hours 18 minutes 45 seconds Findings: Hemorrhoids were found on perianal exam. Non-bleeding internal hemorrhoids were found. The hemorrhoids were Grade I (internal hemorrhoids that do not prolapse). The entire examined colon appeared normal. Impression: - Hemorrhoids found on perianal exam. - Non-bleeding internal hemorrhoids. - The entire examined colon is normal. - No specimens collected. Recommendation: - Discharge patient to home. - Resume previous diet. - Continue present medications. - Await pathology results. - Repeat colonoscopy in 10 years for screening purposes. Procedure Code(s): --- Professional --- G0121, PT, Colorectal cancer screening; colonoscopy on individual not meeting criteria for high risk Diagnosis Code(s): --- Professional --- Z12.11, Encounter for screening for malignant neoplasm of colon K64.0, First degree hemorrhoids CPT copyright 2021 [employer]. All rights reserved. The codes documented in this report are preliminary and upon technology development intern review may be revised to meet current compliance requirements. MD Shelby Hurst MD 04/17/2024 10:15:53 AM This report has been signed electronically. Number of Addenda: 0 Note Initiated On: 04/17/2024 9:40 AM
--- NOTE | 2024-04-17 10:20 | PCM.POST.ANE ---
Anesthesia: Postop Eval I Current Vital Signs Temperature: 98.8 F Pulse Rate: 67 Blood Pressure: 80/57 Respiratory Rate: 16 Pulse Ox: 99 Oxygen Delivery Method: Room Air Assessment Airway patent: Yes Spontaneous unlabored respirations: Yes Mental status: Awake and Calm nausea: No Vomiting: No Anesthesia Complication: No Fluid Hydration Crystalloid volume administer (ml): 60 Total IV fluid infused: 60 Progress Note Anesthesia document: Postop Eval 1 completed: Yes
--- NOTE | 2024-04-17 11:27 | PCM.POSTANE2 ---
Anesthesia Postop Eval I Sum Postop Eval Completion status Anesthesia document: Postop Eval 1 completed: Yes Anesthesia Postop Eval I Summary Anesthesia Postop Eval I Summary: Anesthesia Postop Eval I: Assessment Summary Airway patent Yes 04/17/24 10:21 [email or web address] Spontaneous unlabored Yes 04/17/24 10:21 [email or web address] respirations Mental status Awake,Calm 04/17/24 10:21 [email or web address] nausea No 04/17/24 10:21 [email or web address] Vomiting No 04/17/24 10:21 [email or web address] Anesthesia Postop Eval I: Fluid Summary Crystalloid volume administer 60 04/17/24 10:21 [email or web address] (ml) Colloids volume administered ( ml) Blood Product volume administered (ml) Total IV fluid infused 60 04/17/24 10:21 [email or web address] Anesthesia Postop Eval I: Summary Notes Anesthesia Complication No 04/17/24 10:21 [email or web address] Anesthesia Complication Comment: Post-operative progress note Anesthesia: Postop Eval II Evaluation Mental status: Awake Pain Level: 0 nausea: No Vomiting: No Complications Anesthesia Complication: No
== END 2024-04-17 11:11 | disposition home or self-care (01) ==
LOC: EN 08:02 → AC 08:04
PROVIDERS: PCP Family Medicine; Referring Provider Family Medicine; Visit Provider Surgery
PROC: 0DJD8ZZ Inspection of Lower Intestinal Tract, Via Natural or Artificial Opening Endoscopic (ICD-10-PCS; CPT 45378; principal; 2024-04-17 09:10)
DX: Z12.11 Encounter for screening for malignant neoplasm of colon (principal); K64.0 First degree hemorrhoids; E03.9 Hypothyroidism, unspecified; Z79.890 Hormone replacement therapy; Z83.719 Family history of colon polyps, unspecified
CPT/HCPCS: 45378; A4216; J2405

== ENCOUNTER 2024-12-08 09:01 | Outpatient (CLI) | payer BC, SELFPAY ==
[2024-12-08 10:56] LABS: CRP < 3.00 mg/L (0.0-3.0)
[2024-12-11 22:07] LABS: Anti-Chromatin <0.2 AI (0.0-0.9); Anti-Jo <0.2 AI (0.0-0.9); Anti-dsDNA Ab <1 IU/mL (0-9); Egg, Whole 0.14 kU/L (Class 0/I); Mussels <0.10 kU/L (Class 0); SJOGREN'S Anti-SS-A test < 0.2 AI (0.0-0.9); SJOGREN'S Anti-SS-B test < 0.2 AI (0.0-0.9)
[2024-12-12 05:07] LABS: Cytoplasmic Ab (C-ANCA) <1:20 titer (Neg:<1:20); IgG, Quant 1091 mg/dL (586-1602); Immunoglobulin A 114 mg/dL (87-352); Immunoglobulin G, Subclass 1 597 mg/dL (248-810); Immunoglobulin G, Subclass 2 306 mg/dL (130-555); Immunoglobulin G, Subclass 3 40 mg/dL (15-102); Immunoglobulin G, Subclass 4 5 mg/dL (2-96); Immunoglobulin M 72 mg/dL (26-217); Perinuclear Ab (P-ANCA) <1:20 titer (Neg:<1:20)
== END 2024-12-08 23:59 | disposition home or self-care (01) ==
LOC: LAB 09:04
PROVIDERS: PCP Family Medicine; Referring Provider Internal Medicine Gastroenterology; Visit Provider Internal Medicine Gastroenterology
DX: R13.10 Dysphagia, unspecified (principal)
CPT/HCPCS: 36415; 82784; 82785; 82787; 85652; 86003; 86005; 86037; 86140; 86225; 86235

== ENCOUNTER 2025-01-12 08:09 | Day surgery (SDC) | payer BC, SELFPAY ==
[2025-01-12] VITALS (8 sets, daily range): BP systolic 89–104; BP diastolic 59–66; PULSE 55–72; RESP 12–18; TEMP 36.1–37.1; O2SAT 95–100; BMI 22.0
[2025-01-12] MEDS: Lactated Ringers 1,000 ML 15 ML IV (08:42)
== END 2025-01-12 10:26 | disposition home or self-care (01) ==
LOC: EN 08:11 → AC 08:12
PROVIDERS: PCP Family Medicine; Referring Provider Family Medicine; Visit Provider Internal Medicine Gastroenterology
PROC: 0DJ08ZZ Inspection of Upper Intestinal Tract, Via Natural or Artificial Opening Endoscopic (ICD-10-PCS; CPT 43235; principal; 2025-01-12 08:55)
DX: R13.10 Dysphagia, unspecified (principal); K22.2 Esophageal obstruction; K29.70 Gastritis, unspecified, without bleeding; Z80.0 Family history of malignant neoplasm of digestive organs; E03.9 Hypothyroidism, unspecified; Z79.890 Hormone replacement therapy; Z98.51 Tubal ligation status; K21.00 Gastro-esophageal reflux disease with esophagitis, without bleeding
CPT/HCPCS: 43248; 43239; 88305; C1769; J2405

== ENCOUNTER → 2025-01-26 | Outpatient (CLI) | payer BC, SELFPAY ==
[2025-01-26 08:19] LABS: Hematocrit 44.4 % (37-47); Hemoglobin 15.2 g/dL (12.0-15.0); Immature Granulocytes Count 0.040 X10^3/uL (0.0-0.0); Mean Corp Hgb Conc 34.2 g/dL (32-36); Mean Corpuscular Volume 91.5 fL (81-99); Mean Platelet Vol. 8.7 fl (6.2-12.0); NRBC Flagged by Analyzer 0 % (0-5); Platelet Count 251 K/mm3 (150-450); RBC Distribution Width CV 11.7 % (11.6-14.6); RBC Distribution Width SD 39.2 fl (35.1-43.9); Red Blood Count 4.85 M/mm3 (4.2-5.4); White Blood Count 7.6 K/mm3 (4.4-11.0)
[2025-01-26 08:55] LABS: AST(SGOT) 18 U/L (<=31); Alanine Aminotransfer ALT/SGPT 20 U/L (<=34); Albumin, Serum 4.8 g/dL (3.5-5.0); Alkaline Phosphatase 75 U/L (35-104); Anion Gap 11 (5-15); BUN 14 mg/dL (4-19); BUN/Creat Ratio 20.7 RATIO (10-20); Calcium,Total 9.5 mg/dL (7.6-11.0); Carbon Dioxide 26.9 mmol/L (21.0-32.0); Chloride 101 mmol/L (98-108); Cholesterol 220 mg/dL (<=200); Globulin 2.9 g/dL (2.2-4.2); Glucose 99 mg/dL (70-99); Low Density Lipoprotein Calc. 127 mg/dL; Potassium 3.8 mmol/L (3.3-5.1); Triglycerides 69 mg/dL; Very Low Density Lipoprotein 14 mg/dL (5-40); cholesterol:hdl ratio screen 2.72
[2025-01-26 08:57] LABS: Free T3 2.9 pg/mL (2.18-3.98)
[2025-01-27 09:09] LABS: PROGESTERONE <0.1 ng/mL (.)
== END | disposition home or self-care (01) ==
LOC: LAB 07:53
PROVIDERS: PCP Family Medicine; Referring Provider Nurse Practitioner Family; Visit Provider Nurse Practitioner Family
DX: Z00.01 Encounter for general adult medical examination with abnormal findings (principal); E03.9 Hypothyroidism, unspecified; N95.1 Menopausal and female climacteric states
CPT/HCPCS: 36415; 80053; 80061; 82670; 84144; 84403; 84439; 84443; 84481; 85025